=== PATIENT | male | born 2000 | race Caucasian/White ===

== ENCOUNTER 2023-05-07 14:23 | Emergency (ER) | payer OTHER, SELFPAY ==
[2023-05-07 14:25] VITALS: BP 137/86
[2023-05-07 14:50] LABS: % Basophils 0.2 % (0-2); % Eosinophils 0.6 % (0-6); % Immature Granulocytes 0.4 % (0-0.5); % Lymphocytes 6.8 % (20.5-51.1); % Monocytes 8.7 % (1.7-9.3); % Neutrophils 83.3 % (42.2-75.2); Absolute Eosinophils 0.1 10^3/uL (0-0.7); Absolute Lymphocytes 0.6 10^3/uL (1.2-3.4); Absolute Monocytes 0.7 10^3/uL (0.1-0.6); Mean Corp Hgb Conc. 35.1 g/dL (33.0-37.0); Mean Corpuscular Hgb 28.8 pg (27.0-31.0); Mean Platelet Volume 8.9 fL (7.4-10.4); Nucleated Red Blood Cells % 0 % (-); Platelet Count 262 10^3/uL (130-400); Red Blood Cell Count 4.51 10^6/uL (4.70-6.10); Red Cell Dist. Width 12.3 % (11.5-14.5); White Blood Cell Count 8.4 10^3/uL (4.8-10.8)
[2023-05-07 15:04] LABS: ALT (SGPT) 56 U/L (0-50); AST (SGOT) 37 U/L (17-59); Albumin 4.6 g/dl (3.5-5.0); Alkaline Phosphatase 74 U/L (38-126); Blood Urea Nitrogen 15 mg/dl (9-20); Calcium 9.4 mg/dl (8.4-10.2); Carbon Dioxide 25 mmol/L (22-30); Chloride 101 mmol/L (98-107); Glucose 100 mg/dl (70-99); Potassium 4.3 mmol/L (3.5-5.1); Sodium 133 mmol/L (135-145); Total Bilirubin 0.8 mg/dl (0.2-1.3); Total Protein 7.4 g/dl (6.3-8.2); eGFR > 60.00
[2023-05-07 15:06] LABS: Monotest Negative (Negative)
[2023-05-07 15:14] LABS: COVID-19 Antigen Negative (Negative)
[2023-05-07] MEDS: NSS 1000 IV (15:59)
[2023-05-07] MEDS: TORADOL 15 MG IV (16:16)
--- NOTE | 2023-05-07 17:25 | ED.GENMED ---
History of Present Illness
General
Chief Complaint: Cold/Flu/URI Symptoms
Time Seen by Provider: 05/07/23 15:32
Travel History
Have you had any contact with someone who has COVID-19?: No
Do you have any symptoms of coronavirus? Fever > 100 degrees, chills, cough, shortness of breath, sore throat, loss of taste or smell, muscle aches, or headache?: No
History of Present Illness
History of Present Illness:
22-year-old male with no significant past medical history presents to the emergency department for evaluation of persistent nasal congestion and headache for the past 2 weeks progressively worsening. He developed severe headache and chills last
night. Noted lower abdominal discomfort today as well. Went to his primary care physician today and they encouraged him to come the emergency department. He denies any nausea or vomiting. Has had generally poor p.o. intake over the past few
days. No ill contacts at home. Denies any photosensitivity or neck pain
Review of Systems
Review of Systems
Allergies reviewed?: Yes
All Other Systems: ROS reviewed and negative except as documented in HPI and ROS
Phy Exam
Physical Exam
Physical Exam:
GEN: Well appearing, NAD, WDWN
Eyes: PERRLA, EOMs intact, no scleral icterus
HENT: NCAT, oral mucosa moist, free unrestricted neck range of motion, no meningeal signs
Lungs: CTAB, no wheezes, rales, rhonchi, normal chest wall excursion
Cardiac: RRR, no M/R/G, no peripheral edema. Radial pulses 2+ bilat
Abdomen: S, focal right lower quadrant tenderness ND, NABS, no masses or hepatosplenomegaly
Neuro: AO x 3
MSK: No gross deformity or ecchymosis. No edema. No digital clubbing
Skin: No rashes, petechiae. Normal color, no pallor or jaundice.
Psych: Calm, cooperative, proper hygiene
Course
Orders/Labs/Results
Orders:
Orders
05/07/23 14:29
Electrocardiogram (*1) Urgent
Reason for Study: Fatigue / Weakness
EKG- Treatment ONCE
05/07/23 14:40
COVID-19 Antigen Urgent
Source: Nasal Swab
Complete Blood Count/With Diff Urgent
Comprehensive Metabolic Panel Urgent
Monotest Urgent
Influenza A+B Rapid Molecular Urgent
KYLE Source: Nasal Swab
Specimen Description:
05/07/23 15:40
CT Abd/Pel (IV only)-DH only Urgent
Comment:
Reason For Exam: RLQ pain
0.9% Sodium Chloride 1000 ml [Nss] 1,000 ml IV BOLUS
Ondansetron Injectable [Zofran] 4 mg IV NOW STA
05/07/23 16:09
Ketorolac [Toradol] 15 mg IV NOW STA
05/07/23 17:31
Ondansetron Injectable [Zofran] 4 mg IV NOW STA
Abnormal Lab Results
05/07/23
14:40
RBC 4.51 L 10^6/uL
(4.70-6.10)
Hct 37.0 L %
(39.0-52.0)
Absolute Neuts (auto) 7.0 H 10^3/uL
(1.4-6.5)
Absolute Lymphs (auto) 0.6 L 10^3/uL
(1.2-3.4)
Absolute Monos (auto) 0.7 H 10^3/uL
(0.1-0.6)
Neutrophils % 83.3 H %
(42.2-75.2)
Lymphocytes % 6.8 L %
(20.5-51.1)
Sodium 133 L mmol/L
(135-145)
Glucose 100 H mg/dl
(70-99)
ALT 56 H U/L
(0-50)
05/07/23 14:40
05/07/23 14:40
Vital Signs
Initial and Last Documented VS:
Initial Vital Signs
Temp Pulse Resp BP Pulse Ox
99.7 F 124 18 137/86 98
05/07/23 14:25 05/07/23 14:25 05/07/23 14:25 05/07/23 14:25 05/07/23 14:25
Last Documented Vital Signs
Temp Pulse Resp BP Pulse Ox
99.7 F 98 18 118/66 97
05/07/23 14:25 05/07/23 17:58 05/07/23 17:58 05/07/23 17:58 05/07/23 17:58
MDM/Problems Addressed
MDM/Problems Addressed:
Although the majority of the patient's symptoms are suspicious for persistent upper respiratory tract infection, is significant focal right lower quadrant abdominal pain prompted imaging to rule out appendicitis, imaging reveals findings compatible
with mesenteric adenitis which is likely the most likely cause of his symptoms. His vital signs did improve with analgesics and IV fluids. Given the persistence of his URI symptoms and worsening headaches with duration greater than 14 days
treatment with antibiotics is appropriate for acute bacterial rhinosinusitis, penicillin and sulfa thus we will treat with doxycycline.
*Critical Care Note
Total Time (30-74mins, 75-104mins- exclusive of procedures): Not Applicable
ED Attending Note
-
Portions of this chart may have been created with voice recognition software.� Occasional wrong word or��sound alike� substitutions may have occurred due to the inherent limitations of voice recognition software.
Discharge Plan
Departure
Patient Disposition: Home (Routine Discharge)
Date of Disposition: 05/07/23
Time of Disposition: 17:46
Patient with high blood pressure during this ER visit?: No
Discharge Problem:
Acute bacterial rhinosinusitis, Acute viral syndrome
Instructions: Viral Syndrome (DC)
Prescriptions:
New
doxycycline hyclate 100 mg tablet
100 mg PO BID 5 Days Qty: 10 0RF
Referrals:
Woo Carreon CRNP [Family Provider] -
Activity Restrictions/Additional Instructions:
Your CT scan shows fatty liver infiltration which is a very common finding but should be followed up on by your primary care physician.
Interventions
Interventions:
*ED COVID-19 Vaccine History Last Done: 05/07/23 14:25
*Nursing Disposition Last Done: 05/07/23 17:58
ED- Pulmonary Assessment Last Done: 05/07/23 17:00
Discharge Date and Time
Discharge Date/Time: 05/07/23 17:59
[2023-05-07] MEDS: ZOFRAN 4 MG IV (17:32)
[2023-05-07 17:58] VITALS: BP 118/66
== END 2023-05-07 17:59 | disposition home or self-care (01) ==
LOC: EMR 14:23
PROVIDERS: Emergency Medicine; EMERGENCY PHYSICIAN Emergency Medicine; FAMILY PHYSICIAN Nurse Practitioner Family
DX: J01.90 Acute sinusitis, unspecified (principal); B96.89 Other specified bacterial agents as the cause of diseases classified elsewhere; B34.9 Viral infection, unspecified
CPT/HCPCS: 99285; 96374; 96375; 74177; 80053; 85025; 86308; 87502; 87811; 93005; Q9967

== ENCOUNTER → 2023-07-06 16:55 | Outpatient (REF) | payer OTHER, SELFPAY | LOC: HWRAD 16:55 | PROVIDERS: ATTENDING PHYSICIAN Nurse Practitioner Family | DX: J40 Bronchitis, not specified as acute or chronic (principal) | CPT/HCPCS: 71046 ==